=== PATIENT | female | born 1980 | race American Indian/Alaskan Native ===

== ENCOUNTER 2020-01-26 01:28 | Emergency (ER) | payer MEDICAID, OTHER ==
--- NOTE | 2020-01-26 04:26 | Emergency Department Report ---
ED Female HPI - General Chief complaint: Urogenital-Female Stated complaint: UTI Time Seen by Provider: 01/26/20 03:57 Source: patient Mode of arrival: Ambulatory Limitations: No Limitations - History of Present Illness Initial comments: 39-year-old female with a past medical history of asthma, cholecystectomy, and hysterectomy presents to the hospital complains of urinary frequency x3 days. Patient having urgency and towards the end of urinary stream states that urine is trickling out. He is also having pelvic pressure prior to urination and has noticed pink discoloration when wiping after urination. Patient denies fever, flank pain, nausea, vomiting, or increased thirst. - Related Data Home Medications Medication Instructions Recorded Confirmed Last Taken Tablet 1 tab PO DAILY 12/05/15 12/05/15 12/02/15 Previous Rx's Medication Instructions Recorded Last Taken Type Fluconazole (Nf) [Diflucan TAB] 150 mg PO ONCE #1 tablet 01/26/20 Unknown Rx Nitrofurantoin Major/M-Cryst 100 mg PO BID #10 capsule 01/26/20 Unknown Rx [Macrobid CAP] Phenazopyridine [Pyridium] 200 mg PO TID #6 tab 01/26/20 Unknown Rx Allergies Allergy/AdvReac Type Severity Reaction Status Date / Time No Known Allergies Allergy Verified 09/20/13 02:08 ED Review of Systems ROS: Stated complaint: UTI Other details as noted in HPI Comment: All other systems reviewed and negative ED Past Medical Hx - Past Medical History Previous Medical History?: Yes Hx Hypertension: No Hx Congestive Heart Failure: No Hx Diabetes: No Hx Deep Vein Thrombosis: No Hx Renal Disease: No Hx Sickle Cell Disease: No Hx Seizures: No Hx Asthma: Yes Hx COPD: No Hx HIV: No - Surgical History Past Surgical History?: Yes Hx Cholecystectomy: Yes Additional Surgical History: Hysterectomy - Social History Smoking Status: Never Smoker Substance Use Type: None - Medications Home Medications: Home Medications Medication Instructions Recorded Confirmed Last Taken Type Tablet 1 tab PO DAILY 12/05/15 12/05/15 12/02/15 History Fluconazole (Nf) [Diflucan TAB] 150 mg PO ONCE #1 tablet 01/26/20 Unknown Rx Nitrofurantoin Major/M-Cryst 100 mg PO BID #10 capsule 01/26/20 Unknown Rx [Macrobid CAP] Phenazopyridine [Pyridium] 200 mg PO TID #6 tab 01/26/20 Unknown Rx ED Physical Exam - General Limitations: No Limitations - Other Other exam information: General: No acute distress Head: Atraumatic Eyes: normal appearance ENT: Moist mucous membranes Neck: Normal appearance, no midline tenderness Chest: Clear to auscultation bilaterally CV: Regular rate and rhythm Abdomen: Soft, normal bowel sounds, nontender, nondistended, no rebound or guarding Back: Normal inspection Extremity: Normal inspection, full range of motion Neuro: Alert O x 3, no facial asymmetry, speech clear, no gross motor sensory deficit Psych: Appropriate behavior Skin: No rash ED Course Vital Signs 01/26/20 01:29 Temperature 97.7 F Pulse Rate 65 Respiratory 17 Rate Blood Pressure 165/87 O2 Sat by Pulse 99 Oximetry ED Medical Decision Making - Lab Data Lab Results 01/26/20 01/26/20 Range/Units 04:04 04:25 POC Glucose 95 (70-105) mg/dL Urine Color Yellow (Yellow) Urine Turbidity Slightly-cloudy (Clear) Urine pH 7.0 (5.0-7.0) Ur Specific [place] 1.016 (1.003-1.030) Urine Protein 100 mg/dl (Negative) mg/dL Urine Glucose (UA) Neg (Negative) mg/dL Urine Ketones Neg (Negative) mg/dL Urine Blood Mod (Negative) Urine Nitrite Neg (Negative) Urine Bilirubin Neg (Negative) Urine Urobilinogen < 2.0 (<2.0) mg/dL Ur Leukocyte Esterase Lg (Negative) Urine WBC (Auto) 179.0 H (0.0-6.0) /HPF Urine RBC (Auto) 62.0 (0.0-6.0) /HPF U Epithel Cells (Auto) 1.0 (0-13.0) /HPF Urine Bacteria (Auto) 1+ (Negative) /HPF Urine Mucus Few /HPF Urine Yeast (Budding) 3+ /HPF Urine HCG, Qual Negative (Negative) - Medical Decision Making Patient presents to the hospital with urinary symptoms. Glucose normal range. UA suggestive of infection with possible yeast vaginitis. Patient provided 1 dose of Macrobid in the ED. Will be discharged on Macrobid, Pyridium, and Diflucan with PMD follow-up. Patient blood pressure noted to be elevated. She states that she has a blood pressure check on a regular basis and it is typically in the systolic range of 120s. She denies headache, chest pain, or shortness of breath. Therefore patient will not be started on medications at this time and encouraged to follow-up with BP for blood pressure recheck and also monitor her blood pressure at home prior to follow-up. Critical Care Time: No Critical care attestation.: If time is entered above; I have spent that time in minutes in the direct care of this critically ill patient, excluding procedure time. ED Disposition Clinical Impression: UTI (urinary tract infection), Elevated blood pressure reading, Yeast vaginitis Disposition: - TO HOME OR SELFCARE Is pt being admited?: No Does the pt Need Aspirin: No Condition: Stable Instructions: Vaginal Yeast Infection, Adult, Urinary Tract Infection, Adult, Managing Your Hypertension Additional Instructions: Take the medication as prescribed. Follow-up with your doctor or doctor/clinic provided. Return if symptoms worsen as indicated by your discharge instructions. Prescriptions: Fluconazole (Nf) [Diflucan TAB] 150 mg PO ONCE #1 tablet Nitrofurantoin Major/M-Cryst [Macrobid CAP] 100 mg PO BID #10 capsule Phenazopyridine [Pyridium] 200 mg PO TID #6 tab Referrals: PRIMARY CAREMD [Primary Care Provider] - 3-5 Days GABBIE NORMAN MD [Staff Physician] - 3-5 Days KALYN BURKS MD [Staff Physician] - 3-5 Days [facility] [Provider Group] - 3-5 Days Time of Disposition: 05:38
[2020-01-26 04:49] LABS: Bacteria,Urine 1+ /HPF (Negative); Bilirubin,Urine NEG (Negative); Blood,Urine MOD (Negative); Color,Urine Yellow (Yellow); Mucus,Urine FEW /HPF; Urobilinogen,Urine < 2.0 mg/dL (<2.0)
[2020-01-26] MEDS ORDERED: NITROFURANTOIN MONOHYD/M-CRYST 100 MG CAP PO ONE (05:00)
[2020-01-26 05:33] LABS: HCG Qualitative,Urine Negative (Negative)
[2020-01-26 05:47] VITALS: BP 142/71
== END 2020-01-26 05:46 | disposition home or self-care (01) ==
LOC: ED 01:28
DX: B37.3 Candidiasis of vulva and vagina (principal); R03.0 Elevated blood-pressure reading, without diagnosis of hypertension; N39.0 Urinary tract infection, site not specified; J45.909 Unspecified asthma, uncomplicated; Z79.899 Other long term (current) drug therapy; Z90.710 Acquired absence of both cervix and uterus; Z90.49 Acquired absence of other specified parts of digestive tract
CPT/HCPCS: 81001; 81025; 82962

== ENCOUNTER 2020-04-15 03:00 | Emergency (ER) | payer SELFPAY ==
[2020-04-15 03:08] VITALS: BP 148/95
[2020-04-15] MEDS ORDERED: metroNIDAZOLE 500 MG TAB PO ONE (04:07)
[2020-04-15 04:23] LABS: Bacteria,Urine 1+ /HPF (Negative); Bilirubin,Urine NEG (Negative); Blood,Urine NEG (Negative); Color,Urine Yellow (Yellow); Mucus,Urine FEW /HPF; Protein,Urine <15 mg/dL mg/dL (Negative); Urobilinogen,Urine < 2.0 mg/dL (<2.0)
[2020-04-15 04:27] LABS: HCG Qualitative,Urine Negative (Negative)
--- NOTE | 2020-04-15 04:38 | Emergency Department Report ---
ED Female HPI - General Chief complaint: Urogenital-Female Stated complaint: ABD PAIN/BACK PAIN/VAGINAL DISCHARGE Source: patient Mode of arrival: Ambulatory Limitations: No Limitations - History of Present Illness Initial comments: Patient is a 40-year-old -[place] female with past medical history of asthma and morbid obesity who presents to the ED with complaint of acute onset persistent suprapubic pressure, low back pain, vaginal irritation with itching, vaginal discharge and urinary frequency and urgency for the last 2 days. Patient states that he would like to be tested because of her symptoms and suspect that she may have contracted an STD from her of 22 years. Patient denies dysuria, nausea, vomiting, chest pain, shortness of breath, fever, chills, vaginal bleeding, sore throat, cough, chest pain, traumatic injury or heavy lifting. MD Complaint: vaginal discharge, possible STD, other (Suprapubic pressure and pain; low back pain; vaginal irritation) -: Sudden, days(s) (2) Location: suprapubic, other (vaginal) Radiation: non-radiating Severity: moderate Severity scale (0 -10): 6 Quality: dull, aching Consistency: constant Improves with: none Worsens with: urination Are you Now?: No Associated Symptoms: denies other symptoms, vaginal discharge, abdominal pain (suprpaubic pressure). denies: vaginal bleeding, nausea/vomiting, fever/chills, headaches, loss of appetite, dysuria, hematuria, rash, seizure, shortness of breath, syncope, weakness, other - Related Data Sexually active: Yes : 3 Para: 3 A: 0 Home Medications Medication Instructions Recorded Confirmed Last Taken Tablet 1 tab PO DAILY 12/05/15 12/05/15 12/02/15 Previous Rx's Medication Instructions Recorded Last Taken Type Nitrofurantoin Wil[place]/M-Cryst 100 mg PO BID #10 capsule 01/26/20 Unknown Rx [Macrobid CAP] Phenazopyridine [Pyridium] 200 mg PO TID #6 tab 01/26/20 Unknown Rx Fluconazole (Nf) [Diflucan TAB] 150 mg PO ONCE #1 tablet 04/15/20 Unknown Rx cephALEXin [Keflex] 500 mg PO Q8HR #30 cap 04/15/20 Unknown Rx metroNIDAZOLE [Flagyl] 500 mg PO Q12HR #14 tab 04/15/20 Unknown Rx Allergies Allergy/AdvReac Type Severity Reaction Status Date / Time iodine Allergy Intermediate Swelling Verified 04/15/20 03:05 ED Review of Systems ROS: Stated complaint: ABD PAIN/BACK PAIN/VAGINAL DISCHARGE Other details as noted in HPI Constitutional: denies: chills, fever Eyes: denies: eye pain, eye discharge, vision change ENT: denies: ear pain, throat pain Respiratory: denies: cough, shortness of breath, wheezing Cardiovascular: denies: chest pain, palpitations Endocrine: no symptoms reported Gastrointestinal: abdominal pain (Suprapubic pressure). denies: nausea, diarrhea Genitourinary: urgency, frequency, discharge, other (Vaginal irritation and pain). denies: dysuria Musculoskeletal: back pain (Low back pain). denies: joint swelling, arthralgia Skin: denies: rash, lesions Neurological: denies: headache, weakness, paresthesias Psychiatric: denies: anxiety, depression Hematological/Lymphatic: denies: easy bleeding, easy bruising ED Past Medical Hx - Past Medical History Previous Medical History?: Yes Hx Hypertension: No Hx Congestive Heart Failure: No Hx Diabetes: No Hx Deep Vein Thrombosis: No Hx Renal Disease: No Hx Sickle Cell Disease: No Hx Seizures: No Hx Asthma: Yes Hx COPD: No Hx HIV: No - Surgical History Past Surgical History?: Yes Hx Cholecystectomy: Yes Additional Surgical History: Hysterectomy - Social History Smoking Status: Never Smoker Substance Use Type: None - Medications Home Medications: Home Medications Medication Instructions Recorded Confirmed Last Taken Type Tablet 1 tab PO DAILY 12/05/15 12/05/15 12/02/15 History Nitrofurantoin [place]/M-Cryst 100 mg PO BID #10 capsule 01/26/20 Unknown Rx [Macrobid CAP] Phenazopyridine [Pyridium] 200 mg PO TID #6 tab 01/26/20 Unknown Rx Fluconazole (Nf) [Diflucan TAB] 150 mg PO ONCE #1 tablet 04/15/20 Unknown Rx cephALEXin [Keflex] 500 mg PO Q8HR #30 cap 04/15/20 Unknown Rx metroNIDAZOLE [Flagyl] 500 mg PO Q12HR #14 tab 04/15/20 Unknown Rx ED Physical Exam - General Limitations: No Limitations General appearance: alert, in no apparent distress, obese - Head Head exam: Present: atraumatic, normocephalic, normal inspection - Eye Eye exam: Present: normal appearance, PERRL, EOMI Pupils: Present: normal accommodation - ENT ENT exam: Present: normal exam, normal orophraynx, mucous membranes moist, TM's normal bilaterally, normal external ear exam - Neck Neck exam: Present: normal inspection, full ROM - Respiratory Respiratory exam: Present: normal lung sounds bilaterally. Absent: respiratory distress, wheezes, rales, rhonchi, stridor, chest wall tenderness, accessory muscle use - Cardiovascular Cardiovascular Exam: Present: regular rate, normal rhythm, normal heart sounds. Absent: systolic murmur, diastolic murmur, rubs, gallop - GI/Abdominal GI/Abdominal exam: Present: soft, normal bowel sounds. Absent: tenderness, guarding, rebound, hyperactive bowel sounds, hypoactive bowel sounds, bruit - Bi-manual exam: Present: other (Pelvic exam deferred, patient preferred self swab) - Extremities Exam Extremities exam: Present: normal inspection, full ROM, normal capillary refill - Back Exam Back exam: Present: normal inspection, full ROM. Absent: CVA tenderness (L), muscle spasm, paraspinal tenderness, vertebral tenderness - Neurological Exam Neurological exam: Present: alert, oriented X3, CN II-XII intact, normal gait, reflexes normal - Psychiatric Psychiatric exam: Present: normal affect, normal mood - Skin Skin exam: Present: warm, dry, intact, normal color. Absent: rash ED Course Vital Signs 04/15/20 03:05 Temperature 98.3 F Pulse Rate 63 Respiratory 16 Rate Blood Pressure 148/95 O2 Sat by Pulse 99 Oximetry ED Medical Decision Making - Medical Decision Making This is a 40-year-old -[place] female with past medical history of asthma and morbid obesity who presents to the ED with complaint of acute onset persistent suprapubic pressure, low back pain, vaginal irritation with itching, vaginal discharge and urinary frequency and urgency for the last 2 days. Patient states that he would like to be tested because of her symptoms and suspect that she may have contracted an STD from her of 22 years. In the ED, patient is alert and oriented x3 and is not in distress. Urinalysis showed mild urinary tract infection. Wet prep was positive for Gardnerella vaginalis and trichomonas vaginalis. Patient was treated in the ED for trichomonas with 2 g p.o. Flagyl x1. Patient discharged home on antibiotics and pain medications and advised to follow-up with the [facility] for further STD testing including HIV. Patient was also advised to observe safe sexual practices, and to inform her sexual partner of her trichomonas diagnosis and treatment. Patient was advised return to the ED immediately if symptoms get worse. - Differential Diagnosis STD; UTI; trichomonas; bacterial vaginosis; Jamia vaginitis; Critical care attestation.: If time is entered above; I have spent that time in minutes in the direct care of this critically ill patient, excluding procedure time. ED Disposition Clinical Impression: Acute urinary tract infection, Bacterial vaginosis, Trichomonas infection Disposition: TO HOME OR SELFCARE Is pt being admited?: No Does the pt Need Aspirin: No Condition: Stable Instructions: Bacterial Vaginosis (ED), Bacterial Vaginosis, [id number], Urinary Tract Infection, Adult, [id number], Trichomoniasis, How to Use a Stirrup Ankle Brace, [id number] Additional Instructions: The urinalysis showed mild urinary tract infection but the vaginal exam was positive for trichomonas which is an STD. You have been treated for the same in the ED but you still have to take medication at home for bacterial vaginosis which is not an STD. Therefore take medications with food, drink plenty of fluids and follow-up with your [facility] physician or at the [facility] for further STD testing including HIV and syphilis. Return to the ED immediately if symptoms get worse. Please inform your sexual partner of the di agnosis so he can be tested and treated for the same. Prescriptions: Fluconazole (Nf) [Diflucan TAB] 150 mg PO ONCE #1 tablet metroNIDAZOLE [Flagyl] 500 mg PO Q12HR #14 tab cephALEXin [Keflex] 500 mg PO Q8HR #30 cap Referrals: [facility] [Outside] - 3-5 Days [facility] [Provider Group] - 3-5 Days Forms: STI Treatment and Prevention Time of Disposition: 04:44 Print Language: PALESTINIAN
[2020-04-15] MEDS ORDERED: ONDANSETRON 4 MG ODT TAB PO ONE (04:47)
== END 2020-04-15 05:18 | disposition home or self-care (01) ==
LOC: ED 03:00
DX: N39.0 Urinary tract infection, site not specified (principal); N76.0 Acute vaginitis; B96.89 Other specified bacterial agents as the cause of diseases classified elsewhere; J45.909 Unspecified asthma, uncomplicated; A59.9 Trichomoniasis, unspecified; Z90.710 Acquired absence of both cervix and uterus; Z79.899 Other long term (current) drug therapy; Z88.8 Allergy status to other drugs, medicaments and biological substances
CPT/HCPCS: 81001; 81025; 87086; 87210; 99283; Q0162